=== PATIENT | male | born 1965 | race Caucasian/White ===

== ENCOUNTER 2022-06-26 08:10 | Outpatient (REF) | payer OTHER, SELFPAY ==
[2022-06-26 11:39] LABS: MANUAL DIFF FLAG NO
[2022-06-26 11:49] LABS: Basophils Absolute Auto 0.1 X10*3/uL (0.0-0.2); Basophils Percent Auto 0.9 % (0-2); Eosinophils Absolute Auto 0.4 X10*3/uL (0.0-0.4); Eosinophils Percent Auto 5.1 % (0-4); Hematocrit 46.1 % (42.0-52.0); Hemoglobin 15.5 g/dl (14.0-18.0); Imm Gran Abs Auto 0.01 X10*3/uL (0.00-0.03); Imm Gran Pct Auto 0.1 % (0.0-0.4); Lymphocytes Absolute Auto 2.3 X10*3/uL (1.2-4.9); Mean Corpuscular HGB Conc 33.6 g/dl (31.0-36.0); Mean Corpuscular Hemoglobin 30.8 pg (27.0-33.0); Mean Corpuscular Volume 91.5 fL (80.0-98.0); Mean Platelet Volume 9.7 fL (9.4-12.4); Monocytes Absolute Auto 0.6 X10*3/uL (0.1-1.2); Neutrophils Absolute Auto 3.7 x10*3/uL (2.0-8.3); Neutrophils Percent Auto 51.9 % (45-73); Platelet Count 318 X10*3/uL (160-400); Red Blood Count 5.04 X10*6/uL (4.60-5.80); Red Cell Distribution Width 12.5 % (11.0-16.0)
[2022-06-26 12:22] LABS: Alanine Aminotransferase 14 U/L (0-40); Albumin Level 4.2 g/dL (3.5-5.0); Alkaline Phosphatase 66 U/L (39-117); Anion Gap 10 (12-20); Aspartate Amino Transferase 17 U/L (5-37); Bilirubin Total 0.9 mg/dL (0.0-1.0); Blood Urea Nitrogen 18 mg/dL (9-16); Calcium 9.1 mg/dL (8.4-10.2); Carbon Dioxide 28 mmol/L (22-29); Chloride 105 mmol/L (96-108); Cholesterol 233 mg/dL; Estimated Glomerular Filt Rate > 60; Glucose Random 97 mg/dL (60-115); HDL Cholesterol 45 mg/dL; LDL Cholesterol Calculated 169 mg/dl; Potassium 3.8 mmol/L (3.3-5.1); Sodium 139 mmol/L (135-145); Total Protein 6.3 g/dL (6.5-8.0); Triglycerides 95 mg/dL
[2022-06-26 12:40] LABS: Prostate Specific Antigen 0.99 ng/mL (<0.05-4.0); Thyroid Stimulating Hormone 1.18 uIU/mL (0.32-4.0); Vitamin D 25-OH Total 27.3 ng/mL (>30)
== END 2022-06-26 08:11 | disposition home or self-care (01) ==
LOC: HO.MANLDS 08:10
PROVIDERS: Visit Provider Internal Medicine
DX: Z00.00 Encounter for general adult medical examination without abnormal findings (principal); Z12.5 Encounter for screening for malignant neoplasm of prostate
CPT/HCPCS: 36415; 80053; 80061; 82306; 84153; 84443; 85025

== ENCOUNTER 2023-06-06 08:59 | Outpatient (REF) | payer OTHER, SELFPAY ==
[2023-06-06 13:47] LABS: Urine Cytology See Pathology rpt
[2023-06-06 14:06] LABS: Appearance Urine Clear; Color Urine Yellow; Glucose Urine UA Negative (Negative); Leukocyte Esterase Urine Negative (Negative); Nitrite Urine Negative (Negative); PH 5.5 (5.0-9.0); Specific Gravity - Urine 1.015 (1.005-1.025); UMIC TRIGGER UACC YES; Urine Blood Large (3+) (Negative); Urine Ketones Negative (Negative); Urine Protein Negative (Neg-Trace)
[2023-06-06 14:11] LABS: Bacteria Urine None Seen (None Seen); Hyaline Casts Urine 0-2 /LPF (0-2); RBC Urine >20 /HPF (0-2); Squamous Epithelial Cell Urine 0-2 /HPF (0-2); WBC Urine 0-5 /HPF (0-5)
== END 2023-06-06 09:00 | disposition home or self-care (01) ==
LOC: HO.MANLDS 08:59
PROVIDERS: Visit Provider Internal Medicine
DX: R31.0 Gross hematuria (principal)
CPT/HCPCS: 81001; 88112

== ENCOUNTER 2023-06-13 09:04 | Outpatient (REF) | payer OTHER, SELFPAY ==
[2023-06-13 14:35] LABS: Alanine Aminotransferase 15 U/L (0-40); Albumin Level 4.3 g/dL (3.5-5.0); Alkaline Phosphatase 49 U/L (39-117); Anion Gap 11 (12-20); Aspartate Amino Transferase 20 U/L (5-37); Blood Urea Nitrogen 19 mg/dL (9-16); C Reactive Protein < 0.04 mg/dL (< or = 0.50); Calcium 9.2 mg/dL (8.4-10.2); Carbon Dioxide 26 mmol/L (22-29); Chloride 108 mmol/L (96-108); Estimated Glomerular Filt Rate > 60; Glucose Random 98 mg/dL (60-115); Sodium 141 mmol/L (135-145); Total Protein 6.6 g/dL (6.5-8.0)
[2023-06-13 14:45] LABS: Bilirubin Total 0.7 mg/dL (0.0-1.0)
== END 2023-06-13 09:05 | disposition home or self-care (01) ==
LOC: HO.MANLDS 09:04
PROVIDERS: Visit Provider Internal Medicine
DX: R31.0 Gross hematuria (principal)
CPT/HCPCS: 36415; 80053; 85025; 85652; 86140

== ENCOUNTER 2023-07-10 14:14 | Outpatient (REF) | payer OTHER, SELFPAY ==
--- NOTE | ~2023-07-10 | CT_ITS ---
EXAMINATION: CT ABDOMEN AND PELVIS WITHOUT AND WITH CONTRAST CLINICAL INFORMATION: Gross hematuria. COMPARISON: None available. TECHNIQUE: Multidetector volumetric imaging was performed of the abdomen and pelvis before and after the IV administration of 85 mL of Omnipaque 350 intravenous contrast. Sagittal and coronal reformatted images were obtained on the technologist's workstation. This CT examination was performed using dose optimization techniques as appropriate, variously including the following: *Automated exposure control *Adjustment of mA and/or kV according to patient size (this includes techniques or standardized protocols for targeted exams where dose is matched to indication/reason for exam; i.e. extremities or head) *Use of iterative reconstruction technique DLP: 591 mGy-cm FINDINGS: LUNG BASES: There is mild bibasilar dependent hypoaeration. The visualized lung bases are otherwise unremarkable. LIVER, GALLBLADDER, AND BILIARY TREE: The liver is normal in size, shape, and attenuation. There are approximately 5 low-attenuation hepatic probable cysts. The largest towards the anterior dome measures 3.9 cm. Further are too small for full characterization with CT. No biliary ductal dilatation is present. The gallbladder is unremarkable with no evidence of radiopaque gallstones, gallbladder wall thickening, or obvious pericholecystic inflammatory changes. PANCREAS: Unremarkable SPLEEN: Unremarkable ADRENAL GLANDS: Unremarkable KIDNEYS AND URETERS: The kidneys are normal in size, shape, and attenuation. No hydronephrosis, hydroureter, or calculi seen. At the upper pole of the right kidney (9:168), a 1.5 cm benign, simple cyst is seen, with postcontrast Hounsfield value of 19.9 units. This requires no imaging follow-up. No perinephric stranding. BLADDER: Arising from the posterior rightward bladder wall (9:516 and 497), 3.6 cm and 1.0 cm diverticuli are seen. Arising from the posterior leftward bladder wall (9:502), a 1.4 cm diverticulum is seen. No mass, nodule or calculus is seen. GASTROINTESTINAL TRACT: There is a patent rectosigmoid anastomotic staple line. There is a moderate stool burden. No obstruction, free intraperitoneal air or abscess is seen. There is no focal bowel wall thickening. No diverticulosis or diverticulitis is seen. The vermiform appendix is not identified with certainty; however, there is no finding to suggest appendicitis. ABDOMINAL WALL: There is a tiny fat-containing umbilical hernia. There are small right and very small left inguinal fat-containing hernias. LYMPH NODES: Normal VASCULAR: Unremarkable PELVIC VISCERA: The prostate and seminal vesicles are unremarkable. There are coarse central prostate calcifications. OSSEOUS STRUCTURES: There is multi-level lower thoracic and mild lumbar spondylosis. Small sclerotic bone islands are seen within the L4 vertebral body and the right ilium. No acute or aggressive osseous abnormality is seen. CT/CT abdomen pelvis wo/w IV con IMPRESSION: 1. There are bladder diverticula, as detailed. No bladder mass, nodule or calculus is seen. 2. There is no urinary mass, calculus or obstruction seen. 3. There are low-attenuation hepatic probable cysts, some too small to fully characterize with CT. These are of doubtful clinical significance. If of continued clinical concern (i.e., history of hepatocellular disease or known malignancy), these can be further evaluated with ultrasound or MRI. 4. A patent rectosigmoid anastomotic staple line is seen. There is no bowel obstruction, free intraperitoneal air or abscess. 5. There are small abdominal wall hernia defects, as detailed. 6. There are are degenerative changes of the spine. No aggressive osseous lesion is seen. Fleischner guidelines were followed.
[2023-07-10] MEDS: iohexoL 350 MG/ML 100 ML INFUS..BTL IV (15:04)
== END 2023-07-10 14:15 | disposition home or self-care (01) ==
LOC: HO.CT 14:14
PROVIDERS: PCP Internal Medicine; Visit Provider Internal Medicine
DX: R31.0 Gross hematuria (principal)
CPT/HCPCS: 74178; Q9967

== ENCOUNTER 2023-12-01 07:59 | Outpatient (REF) | payer OTHER, SELFPAY ==
[2023-12-01 13:56] LABS: Alanine Aminotransferase 17 U/L (0-40); Albumin Level 4.1 g/dL (3.5-5.0); Alkaline Phosphatase 47 U/L (39-117); Anion Gap 10 (12-20); Aspartate Amino Transferase 20 U/L (5-37); Bilirubin Direct 0.2 mg/dL (0.0-0.5); Bilirubin Total 0.8 mg/dL (0.0-1.0); Blood Urea Nitrogen 16 mg/dL (9-16); Calcium 8.9 mg/dL (8.4-10.2); Carbon Dioxide 27 mmol/L (22-29); Chloride 106 mmol/L (96-108); Cholesterol 230 mg/dL (<200); Estimated Glomerular Filt Rate > 60; Glucose Random 99 mg/dL (60-115); HDL Cholesterol 45 mg/dL (>40); LDL Cholesterol Calculated 156 mg/dL (<100); Potassium 3.8 mmol/L (3.3-5.1); Sodium 139 mmol/L (135-145); Total Protein 6.3 g/dL (6.5-8.0); Triglycerides 149 mg/dL (<150)
== END 2023-12-01 08:00 | disposition home or self-care (01) ==
LOC: HO.MANLDS 07:59
PROVIDERS: PCP Internal Medicine; Visit Provider Internal Medicine Cardiovascular Disease
DX: E78.5 Hyperlipidemia, unspecified (principal)
CPT/HCPCS: 36415; 80053; 80061; 82248

== ENCOUNTER 2024-12-28 08:41 | Outpatient (REF) | payer OTHER, SELFPAY ==
--- OUTSIDE RECORDS SUMMARY | 2024-04-30 09:00 | XMS_ITS ---
Author Name [facility] Address [address] [place] [address] Support Name Relationship Address Phone UNK, UNK Emergency Contact Unknown Unavailabl e Selected Encounter This section includes the information on record at [facility] for the Encounter. Date/Time Encounter Type Encounter Description Reason Provider Source Apr 30, 2024 01:00 PM INTRM OPH EXAM NEW PATIENT OPTOMETRY ICD-10-CM H52.4 Presbyopia KASH MILLS [facility] [place] Encounter Template Text not used by [facility] Assessments - Encounter Diagnoses This section includes the primary and secondary diagnoses documented for the Encounter. Date/Time Primary/Secondary Diagnosis Diagnosis Name Provider Source Apr 30, 2024 04:59 PM PRIMARY Presbyopia KASH MILLS [facility] Encounter Notes: All associated encounter notes This section contains the clinical notes associated to the Encounter. Date/Time Encounter Note(s) Provider Source Apr 30, 2024 01:04 PM OPTOMETRY NOTE: LOCAL TITLE: OPTOMETRY NOTE STANDARD TITLE: OPTOMETRY NOTE DATE OF NOTE: APR 30, 2024@13:04 ENTRY DATE: APR 30, 2024@13:04:14 AUTHOR: LUCIANO MILLS EXP COSIGNER: URGENCY: STATUS: COMPLETED Problem List - Active - NONE FOUND Active Outpatient Medications (including Supplies): No Medications Found Allergies: No Allergy Assessment All medications including those prescribed by outside [facility], community providers, and all OTC meds were reviewed and reconciled with patient to the best of their abilities. 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 Habitual & Visual Acuity cc: OD:-0.25 -0.75 070 20/20-2 OS:-0.25 -1.00 110 20/20-2 Add:+2.00 Comment: pt wearing PAL and wanting to tilt chin up for distance viewing Pupils: ERRL, No APD EOMS: Smooth, Full, no restrictions OU CVF: FTFC OU Subjective Refraction: OD +0.25 -0.75 X83 20/20 OS +0.50 -1.00 X93 20/20 Add:+2.25 NOTE: Trial framed above Mrx @ D and had pt compare to habitual rx and pt preferred trial frame over habitual Adnexa: clear OU Slit Lamp Biomicroscopy: Lids/Lashes: OD: clear OS: clear Conjunctiva: OD: white and quiet OS: white and quiet Cornea: OD: clear OS: clear AC: OD: deep and quiet OS: deep and quiet Angles: OD: 3/4:1 OS: 3/4:1 Iris: OD: flat/intact OS: flat/intact Impression: 1. Refractive Error, Presbyopia Plan: 1. SRx updated. New PALs ordered. Copy of Rx dispensed Return to Clinic: 1-3 months DFE *Pt advised to contact clinic or return sooner for changes as needed. Education: The above exam findings and plan were explained to the patient and patient verbalized understanding of the plan. The patient's questions and/or concerns have been answered. Barriers to Education: None. Patient is alert and oriented x 3. /julee/ LUCIANO MILLS OD, M[employer] STAFF BASKET ASSEMBLER Signed: 04/30/2024 17:10 LUCIANO MILLS [facility]
--- OUTSIDE RECORDS SUMMARY | 2024-12-28 09:00 | XMS_ITS | Data Portability ---
Author Organization [facility], Telehealth Patient Home Address [address] [place] [address] Assessment Encounter Date Assessment Date Assessment LastModified by Organization Details LastModified Time 06/27/2020 06/27/2020 ON THE DATE OF THIS ENCOUNTER, I PERSONALLY PERFORMED, FOR A TOTAL TIME OF , , , , , , , MINUTES, BOTH FACE TO FACE AND NON FACE TO FACE SERVICES WHICH INCLUDED: REVIEWING RECORDS, OBTAINING PATIENT HISTORY, PERFORMING A MEDICALLY APPROPRIATE EXAMINATION, COUNSELING AND EDUCATING THE PATIENT/FAMILY/CA REGIVER AND DOCUMENTING CLINICAL INFORMATION IN THE ELECTRONIC HEALTH RECORD ADDITIONAL SERVICES: Not available 06/27/2020 10:17:48 11/27/2022 11/27/2022 [id number] [place] [id number] (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 MODERATE MUST MEET 2 OUT OF 3 ELEMENTS: PROBLEMS, DATA OR RISK ELEMENT 1: PROBLEMS ADDRESSED 1 OR MORE CHRONIC ILLNESS WITH EXACERBATION OR 2 OR MORE STABLE CHRONIC ILLNESSES OR 1 UNDIAGNOSED NEW PROBLEM OR 1 ACUTE ILLNESS W/SYMPTOMS OR 1 ACUTE COMPLICATED INJURY ELEMENT 2: DATA MUST MEET 1 OF 3 CATEGORIES CATEGORY 1: REVIEW OF PRIOR EXTERNAL NOTES, REVIEW OF RESULTS, ORDERING OF EACH TEST, ASSESSMENT REQUIRING INDEPENDENT HISTORIAN OR CATEGORY 2: INDEPENDENT INTERPRETATION OF TESTS BY ANOTHER PHYSICIAN OR SPECIALIST OR CATEGORY 3: DISCUSSION OF MGT OR TEST INTERPRETATION W/EXTERNAL PHYSICIAN OR SPECIALIST ELEMENT 3: RISK RISK OF COMPLICATIONS AND/OR MORBIDITY OR MORTALITY OF PATIENT MANAGEMENT PROVIDER MUST THOROUGHLY DOCUMENT EACH ELEMENT THAT IS COVERED Not available 11/27/2022 09:14:53 Plan of Treatment Reminders Order Date Submit Date Provider Last Modified By Organization Details Last Modified Time Details Appointments ANNUAL EXAM 2024 11:00A M DR DAMON Not available Not available Not available Lab lipid panel, blood 2018 019 [facility], [address] [place] [address], [address], 09/14/2018 10:25:35 CMP, serum or plasma 2018 019 [facility], [address] [place] [address], [address], 09/14/2018 10:25:35 PSA, serum or plasma 2018 019 [facility], [address] [place] [address], [address], 09/14/2018 10:25:36 Referral None recorded. Procedures None recorded. Surgeries None recorded. Imaging XR, lumbosacr al spine, 2 or 3 view 2022 023 [facility], [address] [place], [address], 11/27/2022 14:29:23 MRI, lumbar spine, w/o contrast 2022 023 [email or web address] Not available 12/16/2022 08:18:00 CT, heart, w/o contrast, w/ coronary calcium score 2022 023 hrubner [facility], [address] [place], [address], 07/08/2022 09:14:20 Medication Orders rosuvasta tin 10 mg tablet 2023 024 [id number], [address] [place], [address], 03/12/2024 11:11:06 Patient TargetsNo targets recorded. Patient InstructionsNo instructions recorded. Reason for Referral None Reported. Results Created Date Observation Date Name Description Value Unit Range Abnormal Flag Note LastModifiedBy Organization Detail LastModifiedTime 07/16/19 23 07/16/2022 CT, heart , w/o contr ast, w/ coron nina calci um score No observ ation record ed. [facility] [address], [place], [address], 07/19/2022 10:10:53 10/17/19 23 10/09/2022 exerc ise stres s test No observ ation record ed. [facility] [address], [place], [address], 10/16/2022 09:49:36 11/28/19 23 11/27/2022 XR, lumbo sacra l spine , 2 or 3 view No observ ation record ed. [email or web address] [facility] [address] [facility], [place], [address], 11/27/2022 15:18:29 12/26/19 23 12/25/2022 MRI, lumba r spine , w/o contr ast No observ ation record ed. [email or web address] [facility] [address] [place] [address] , [place], [address], 12/30/2022 22:51:26 07/11/19 24 07/10/2023 CT, abdom en + pelvi s, w/wo contr ast No observ ation record ed. [email or web address] [facility] (Medical Records) [address] [facility], [place], [address], 07/13/2023 21:08:18 Result Notes None recorded. Problems Name Problem SNOMED Code Status Onset Date Resolution Date Notes Provider Name and Address Organization Details Recorded Time Stricture of esophagus 00218683 Active 2020 Not Available [facility] 2 13:13:29 Gastro-es ophageal reflux disease with esophagit is 944638002 Active 2020 Not Available [facility] 2 13:13:29 Hiatal hernia 72848088 Active 2020 Not Available [facility] 2 13:13:29 Malignant melanoma of lower limb 928900423 Active 2020 Not Available [facility] 2 13:13:29 Calcific coronary arteriosc lerosis 40739449 Active 2022 Kimo Damon, DO [address] [place], [address], [facility] 3 22:42:23 Lumbago-s ciatica due to displacem ent of lumbar intervert ebral disc 96517084 Active 2022 Kimo Damon, DO [address] [place], [address], [facility] 3 09:11:10 Herniatio n of lumbar intervert ebral disc with sciatica 286026841184 105 Active 2022 Kimo Damon, DO [address] [place] [address], [address], [facility] 3 22:52:12 Theron hematuria 076133514 Active 2022 Kimo Damon, DO [address] [place] [address], [address], [facility] 3 08:52:01 Hyperchol esterolem ia 91201828 Active 2023 [facility] 4 11:26:45 Problem Notes None recorded. Medical Equipment None Reported. Allergies No known drug allergies Medications Name Sig Start Date Stop Date Status Note LastModified by Organization Details LastModified Time atorvastati n 20 mg tablet TAKE 1 TABLET BY MOUTH EVERY DAY active Not Available Not Available No t Available azithromyci n 250 mg tablet 10/31 completed Not Available Not Available Not Available metoprolol succinate ER 50 mg tablet,exte nded release 24 hr Take 1 tablet every day by oral route as directed for 90 days. active Not Available Not Available No t Available hydrocortis one 2.5 % topical cream with perineal applicator APPLY SPARINGLY TO AFFECTED AREA 2 TO 4 TIMES A DAY active Not Available Not Available No t Available omeprazole 10 mg capsule,del ayed release Take 1 capsule every day by oral route. active Not Available Not Available No t Available metoprolol succinate ER 25 mg tablet,exte nded release 24 hr TAKE 1 TABLET BY MOUTH EVERY DAY active Not Available Not Available No t Available rosuvastati n 10 mg tablet Take 1 tablet every day by oral route for 30 days. 03/12 completed Not Available Not Available Not Available Fluarix Quad (PF) 60 mcg (15 mcg x 4)/0.5 mL IM syringe 03/09 completed Not Available Not Available Not Available Fluzone Quad (PF) 60 mcg(15 mcgx4)/0.5 mL intramuscul ar syringe 09/09 completed Not Available Not Available Not Available Afluria Qd (36 mos up)(PF)60 mcg (15 mcg x4)/0.5 mL IM syringe inject 0.5 millilite rs intramusc ularly 06/27 completed Not Available Not Available Not Available Fluzone Quad (PF) 60 mcg (15 mcg x 4)/0.5 mL IM syringe ADM 0.5ML IM UTD 06/27 completed Not Available Not Available Not Available Vitals Date Recorded Body weight Heart rate Oxygen saturation Oxygen saturation in Arterial blood by Pulse oximetry Body mass index (BMI) Body height Systolic And Diastolic Provider Name and Address Organization Details Last Updated DateTime 1 68962.9 6 g 79 /min 96 % 96 % 26.4 kg/m2 170.18 cm 140/86 mm[Hg] Kimo Damon DO [address] [place], [address] 1 09:34:23 Date Recorded Body height Body mass index (BMI) Body weight Heart rate Oxygen saturation Oxygen saturation in Arterial blood by Pulse oximetry Systolic And Diastolic Provider Name and Address Organization Details Last Updated DateTime 3 170.18 cm 26.6 kg/m2 51975.9 8 g 77 /min 98 % 98 % 138/80 mm[Hg] Kimo Damon DO [address] [place], [address], [facility] 3 11:29:35 Date Recorded Body weight Heart rate Oxygen saturation Oxygen saturation in Arterial blood by Pulse oximetry Systolic And Diastolic Provider Name and Address Organization Details Last Updated DateTime 9 27544.6 g 91 /min 96 % 96 % 112/70 mm[Hg] Pauly Horner [facility] 9 16:04:24 Date Recorded Body height Body mass index (BMI) Body weight Heart rate Oxygen saturation Oxygen saturation in Arterial blood by Pulse oximetry Systolic And Diastolic Provider Name and Address Organization Details Last Updated DateTime 3 170.18 cm 26.3 kg/m2 48477.8 8 g 70 /min 97 % 97 % 130/78 mm[Hg] Kimo Damon, DO [address] [place], [address], [facility] 3 08:55:15 Date Recorded Heart rate Oxygen saturation Oxygen saturation in Arterial blood by Pulse oximetry Body height Body mass index (BMI) Body weight Systolic And Diastolic Provider Name and Address Organization Details Last Updated DateTime 4 61 /min 95 % 95 % 170.18 cm 26.3 kg/m2 48921.5 2 g 130/68 mm[Hg] Julieta Barnett [facility] 4 11:00:27 Social History Question Answer Notes LastModified by Organizat ion Details LastModified Time Tobacco Smoking Status Never Smoker Not Available [facility] 04/11/2020 03:36:24 What Was The Date Of Your Most Recent Tobacco Screening? 12/09/2023 [email or web address] Information not available 12/09/2023 Sex: Unknown Functional Status Question Answer Note LastModified by Organization D etails LastModified Time Do you or have you ever used any other forms of tobacco or nicotine? No [email or web address] Information not available 11/27/2022 Mental Status None recorded. Family History Nothing Reported. Medical History No medical history recorded. Immunizations Vaccine Type Date Status Note Provider Nam e and Address Organization Details Recorded Time Influenza, split virus, quadrivalent, preservative 1 completed Not Available [facility] 08/08/2022 11:41:03 COVID-19, mRNA, LNP-S, PF, 30 mcg/0.3 mL dose 2 completed Not Available [facility] 08/08/2022 11:41:03 Influenza, split virus, quadrivalent, preservative 8 completed Not Available [facility] 08/08/2022 11:41:02 Influenza, split virus, quadrivalent, preservative 0 completed Not Available [facility] 08/08/2022 11:41:02 Influenza, split virus, quadrivalent, preservative 0 completed Not Available [facility] 08/08/2022 11:41:03 Past Encounters Encounter ID Performer Location Encounter Start Date Encounter Closed Date Diagnosis/Indication Diagnosis SNOMED-CT Code Diagnosis ICD10 Code Diagnosis Note [id number] Kimo Damon [facility] [address] [address] 10/31/2017 08:59:46 10/31/2017 10:19:14 Spinal stenosis in cervical region 26048332 M48.02 will refer fpr PT and then reeval Low back pain 862141591 M54.5 Xray LS spine [id number] Kimo Damon [address] [address] 03/09/2018 11:35:05 03/09/2018 12:15:17 Headache 63964516 R51 having new headaches with recent history of melanoma grade 9 [id number] [address] 03/24/2018 09:28:01 03/24/2018 10:53:55 Malignant melanoma 293343632 C43.9 [place] 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 [id number] Kimo Damon [address] [address] 04/06/2018 15:49:30 04/07/2018 16:52:20 Degeneration of cervical intervertebral disc 84505556 M50.30 mri confirms ansd will treat conserv [place] [id number] Kimo Damon [address] [address] 09/09/2018 15:38:02 09/09/2018 16:43:27 Adult health examination 082691317 Z00.00 will be needing a colonoscop y in the future [id number] Kimo Damon [address] [place] [address] 06/27/2020 09:28:23 06/27/2020 10:07:09 Active or passive immunization 716767288 Z23 will see about shingles Adult heal th examination 988504967 Z00.00 recent colonoscop y and egd reviewed he is doing well overall and other than the esophageal stricture he knows to start the omeprzole [id number] Kimo Damon [facility] [address] [facility] [address] 07/01/2022 11:23:44 07/01/2022 12:19:18 Active or passive immunization 228744590 Z23 patient advised he is due for flu shot & tdap Adult heal th examination 188668822 Z00.00 here and doing wellno major issuesneck is having an issue at times [id number] Kimo Damon [facility] [address] [facility] [place] [address] 11/27/2022 08:49:17 11/27/2022 09:22:09 Lumbago-sciatica due to displacement of lumbar intervertebral disc 69107043 M51.17 has obvious progressiv e radiculopa thy with new leg weaknessha s now affected his gait and 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) [id number] Kimo Damon [facility] [address] [facility] [place] [address] 12/09/2023 10:47:31 12/09/2023 14:44:21 Active or passive immunization 589241447 Z23 patient advised he is due for flu shot & tdap Adult heal th examination 350628224 Z00.00 here and doing wellno major issuesneck is having an issue at times Depression screening 171 852109 Z13.31 negative Calcific c oronary arteriosclerosis 70462794 I25.84 Hypercholesterolemia 136 64318 E78.00 Health Concerns Section Related Observation LastModified by Organization Detai ls LastModified Time None Recorded Concern Status LastModified by Organization Details LastModified Time None Recorded Advance Directives Directive None Recorded Payers Insurance Date Sequence Insurance Name Policy Number Policy Lindsey Covered Member ID Lindsey Member ID Guarantor Name 02/13/2024 1 [facility] (O) [id number] Aaron Sharma [id number] Aaron Sharma 02/13/2024 1 [facility] (HMO) [id number] Aaron Sharma [id number] Aaron Sharma 02/13/2024 1 [facility] (POS) [id number] Aaron Sharma [id number] Aaron Sharma Notes Date Note Type Note Provider Name a nd Address Organization Details Recorded Time 9 text/html here for rehck and is doing ok and not having any major issues feels well and no major issues no cp no sob Kimo Damon DO [address] [place] [address], [address], [facility] 09/09/2018 16:32:39 1 text/html Annual WellnessReported bypatient.Diet and Nutrition:healthy diet Fracture Risk:no history of fractures; no recent explained fracture; no sudden unexplained fractures; no previous musculoskeletal injuries Physical Activity:exercises on a regular basis; recent increase in physical activity; good physical condition Additional Lifestyle Factors:no tobacco use; no alcohol intake; stopped drinking alcohol Depression Risk:never feels sad, empty, or tearful; no loss of interest in activities; no significant changes in weight; no sleep disturbances or insomnia; no agitation; no loss of energy; no feelings of worthlessness or guilt; no thoughts of suicide; no history of depression; no history of mood disorders Hearing:no loss of hearing Vision:no vision problems here for a well phy exam lab and recent GI consult reviewed otherwise is feeling well Kimo Damon DO [address] [place], [address], [facility] 06/27/2020 11:58:05 3 text/html Annual WellnessReported bypatient.Diet and Nutrition:healthy diet Fracture Risk:no history of fractures; no recent explained fracture; no sudden unexplained fractures; no previous musculoskeletal injuries Physical Activity:exercises on a regular basis; recent increase in physical activity; good physical condition Additional Lifestyle Factors:no tobacco use; no alcohol intake; stopped drinking alcohol Depression Risk:never feels sad, empty, or tearful; no loss of interest in activities; no significant changes in weight; no sleep disturbances or insomnia; no agitation; no loss of energy; no feelings of worthlessness or guilt; no thoughts of suicide; no history of depression; no history of mood disorders Hearing:no loss of hearing Vision:no vision problems Kimo Damon DO [address] [place] [address], [address], [facility] 07/01/2022 12:10:17 3 text/html begn with low back pain on occ for months but over the last 6 mo he has noticed progressive low back pain going all down the left siderelates it is progressive and now goes all the way down to his left lower leg to the footrelates now when flying he has to sit sidewaysnot a weak feeling but feels a stretching tearing painstanding straight is okanytime he sits or flexes hip he has pain Kimo Damon DO [address] [place] [address], [address], [facility] 11/27/2022 09:18:00 4 text/html Annual WellnessReported bypatient.Diet and Nutrition:healthy diet Fracture Risk:no history of fractures; no recent explained fracture; no sudden unexplained fractures; no previous musculoskeletal injuries Physical Activity:exercises on a regular basis; recent increase in physical activity; good physical condition Additional Lifestyle Factors:no tobacco use; no alcohol intake; stopped drinking alcohol Depression Risk:never feels sad, empty, or tearful; no loss of interest in activities; no significant changes in weight; no sleep disturbances or insomnia; no agitation; no loss of energy; no feelings of worthlessness or guilt; no thoughts of suicide; no history of depression; no history of mood disorders Hearing:no loss of hearing Vision:no vision problemsNotes:here for cpe doing well no major issuesfeels well Kimo Damon DO [address] [place] [address], [address], [facility] 12/09/2023 11:33:42
--- OUTSIDE RECORDS SUMMARY | 2024-12-28 09:00 | XMS_ITS | Clinical Summary ---
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 Activ e atorvastatin (LIPITOR) 20 MG tablet atorvastatin 20 mg tablet TAKE 1 TABLET BY MOUTH EVERY DAY FOR 30 DAYS 3 Active omeprazole (PRILOSEC) 10 MG capsule daily. 1 Active aspirin 81 MG EC tablet Take 81 mg by mouth daily. Active metoprolol succinate (TOPROL-XL) 50 MG 24 hr tablet Take 1 tablet (50 mg total) by mouth daily. 90 tablet 2 4 Active rosuvastatin (CRESTOR) 10 MG tablet Take 1 tablet by mouth every morning. 4 Active Active Problems Problem Noted Date Diagnosed Date Elevated coronary artery calcium score 3 Assessment & Plan (08/08/2022 11:38 AM EST): He has elevated calcium score. We we discussed that calcium scoring grades of 0 200 100-200 200-400/400 and over 400 is clinically significant. At this point he is already on statin and baby aspirin so I told him that he is protected. I also explained to him that external calcium scoring does not signify internal atherosclerosis and extent of stenosis. I told him that he may not have any internal stenosis or he may have some internal atherosclerosis that we do not know the extent. In order to know if it has any functional significance we will do a stress test and echocardiography for LV wall motion likely Hyperlipidemia 08/08/2022 Malignant melanoma 12/01/2012 Overview (03/08/2024): LEFT LEG Immunizations Immunization Administration Dates Next Due COVID-19 (Pre-03/31) Pfizer Vaccine, mRNA, PF 07/04/2021,09/05/2020,08/14/2020 Tdap 03/08/2024 Social History Tobacco Use Types Packs/Day Years Used Date Smoking Tobacco: Never Smokeless Tobacco: Never Tobacco Cessation:Counseling Given: Not Answered Alcohol Use Standard Drinks/Week Comments Yes 0 (1 standard drink = 0.6 oz pur e alcohol) Education Answer Date Recorded Are you interested in more education? Not on rosaline e 10/04/2022 Are you concerned about learning? Not on file 10/04/2022 No 10/04/2022 No 10/04/2022 Digital Access Answer Date Recorded No 11/02/2022 No 11/02/2022 Reliable internet access at home? Not on file 11/02/2022 Device with a working camera? Not on file Sex and Gender Information Value Date Recorded Sex Assigned at Male 08/08/2022 7:53 AM EST Legal Sex Male 9:42 PM EDT Gender Identity Male 08/08/2022 7:53 AM EST Sexual Orientation Not on file Last Filed Vital Signs Vital Sign Reading Time Taken Comments Blood Pressure 130/76 07/22/2024 9:47 AM EST Pulse 59 07/22/2024 9:47 AM EST Temperature 36.8 C (98.2 F) 03/08/2024 6:08 PM EDT Respiratory Rate 16 03/08/2024 6:08 PM EDT Oxygen Saturation 97% 07/22/2024 9:47 AM EST Inhaled Oxygen Concentration - - Weight 78 kg (172 lb) 07/22/2024 9:47 AM EST Height 167.6 cm (5' 6 ) 07/22/2024 9:47 AM EST Body Mass Index 27.76 07/22/2024 9:47 AM EST Plan of Treatment Upcoming Encounters Date Type Department Care Team (Late st Contact Info) Description 07/22/2025 8:20 AM EST Office Visit [facility] [address] [place] [address] [address] Floor, [address] [place] [address] Fan Noel MD [address], [address] [place] [address] [email or web address] Health Maintenance Due Date Last Done Comments DEPRESSION SCREENING 1976 HEPATITIS C SCREENING 1982 HIV ONE-TIME SCREENING (18-65 YEARS) 1982 PNEUMOCOCCAL VACCINES (50+ years) (1 of 2 - PCV) 10/18/1983 COLOGUARD 2009 COLONOSCOPY 2009 COLORECTAL CANCER SCREENING 2009 FIT TEST 2009 FOBT 2009 SIGMOIDOSCOPY 2009 VIRTUAL COLONOSCOPY 2009 COVID-19 VACCINE ( season) 2024 07/04/2021, 07/04/2021, 09/05/2020, Additional history exists LIPID PANEL 07/12/2025 07/12/2024 SCREENING FOR DIABETES 07/12/2027 07/12/2024 Adult Td,Tdap Booster 03/08/2034 03/08/2024 RSV VACCINE (1 - 1-dose 75+ series) 10/18/2039 ZOSTER VACCINES Completed 10/21/2020, 06/28/2020 SMOKING STATUS SCREENING (Once After 26 Yrs) Completed 07/22/2024 HEPATITIS A VACCINES Aged Out No long er eligible based on patient's age to complete this topic HIB VACCINES Aged Out No longer eligi ble based on patient's age to complete this topic MENINGOCOCCAL VACCINES (ACWY) Aged Out No longer eligible based on patient's age to complete this topic MENINGOCOCCAL VACCINES (B) Aged Out N o longer eligible based on patient's age to complete this topic Medical Devices Not on file Procedures Procedure Name Priority Date/Time Associated Diagnosis Comments LIPID PANEL Routine 07/12/2024 9:27 AM EST Hyperlipidemia from Last 3 Months or Most Recently Relevant to Health Maintenance Results * (ABNORMAL) Lipid panel (07/12/2024 9:27 AM EST) HDL 47 mg/dL [facility] Comment: Interpretation <40 mg/dL: Low HDL cholesterol (major risk factor for CHD) Greater than or equal to 60 mg/dL: High HDL cholesterol ( negative risk factor for CHD) HDL - cholesterol is affected by a number of factors, e.g. smoking, excerise, hormones, sex and age. CHOLESTEROL 146 0 - 240 mg/dL [facility] TRIGLYCERIDES 90 30 - 160 mg/dL [facility] LDL 81 50 - 129 mg/dL [facility] Comment: LDL levels in terms of risk for coronary heart disease: <100 mg/dL: Optimal 100-129 mg/dL: Near or above optimal 130-159 mg/dL: Borderline high 160-189 mg/dL: High >190 mg/dL: Very High CARDIAC RISK RATIO 3.1(L) 3.4 - 5.0 C [facility] Blood 07/12/2024 9:27 AM EST 07/12/2024 9:29 AM EST us Geoffrey Tadeo MD LAB BLOOD ORDERABLES Fin al Result [address] [id number] from Last 3 Months or Most Recently Relevant to Health Maintenance Insurance [facility] [address] [place] [address] HEALTH PLAN [facility] [place] [address] [place] [address] [facility]ALTH PLAN [facility] Care Teams Gas Distribution And Emergency Clerk Relationship Specialty Start Date End Date Kimo Zaldivar DO [email or web address] PCP - General Internal Medicine 10/14/17 Additional Source Comments The information contained in this document represents components of the legal health record. It is not the complete legal health record.[facility]
[2024-12-28 13:08] LABS: MANUAL DIFF FLAG NO
[2024-12-28 13:51] LABS: Hematocrit 43.6 % (42.0-52.0); Hemoglobin 14.7 g/dl (14.0-18.0); Imm Gran Abs Auto 0.01 X10*3/uL (0.00-0.03); Imm Gran Pct Auto 0.1 % (0.0-0.4); Lymphocytes Absolute Auto 1.8 X10*3/uL (1.2-4.9); Mean Corpuscular HGB Conc 33.7 g/dl (31.0-36.0); Mean Corpuscular Hemoglobin 31.1 pg (27.0-33.0); Mean Corpuscular Volume 92.2 fL (80.0-98.0); NRBC Abs Auto 0.000 X10*3/uL (0.0-0.012); NRBC Pct Auto 0.0 /100WBC (0.0-0.2); Platelet Count 290 X10*3/uL (160-400); Red Blood Count 4.73 X10*6/uL (4.60-5.80); White Blood Count 7.0 X10*3/uL (4.8-10.8)
[2024-12-28 14:22] LABS: Alanine Aminotransferase 20 U/L (0-40); Albumin Level 4.4 g/dL (3.5-5.0); Alkaline Phosphatase 68 U/L (39-117); Anion Gap 11 (12-20); Aspartate Amino Transferase 27 U/L (5-37); Blood Urea Nitrogen 19 mg/dL (9-16); Calcium 8.7 mg/dL (8.4-10.2); Carbon Dioxide 25 mmol/L (22-29); Chloride 110 mmol/L (96-108); Cholesterol 160 mg/dL (<200); Estimated Glomerular Filt Rate > 60; HDL Cholesterol 47 mg/dL (>40); Potassium 4.1 mmol/L (3.3-5.1); Sodium 142 mmol/L (135-145); Total Protein 6.3 g/dL (6.5-8.0); Triglycerides 71 mg/dL (<150)
[2024-12-28 14:40] LABS: Prostate Specific Antigen 0.90 ng/mL (<0.05-4.0)
== END 2024-12-28 08:42 | disposition home or self-care (01) ==
LOC: HO.MANLDS 08:41
PROVIDERS: Visit Provider Internal Medicine
DX: E78.00 Pure hypercholesterolemia, unspecified (principal)
CPT/HCPCS: 36415; 80053; 80061; 84153; 85025